=== PATIENT | female | born 1960 | race African-American/Black ===

== ENCOUNTER 2020-10-23 08:11 | Emergency (ER) | payer OTHER ==
[2020-10-23 08:21] VITALS: BP 129/77; PULSE 63; TEMP 97.7; BMI 30.9
[2020-10-23] MEDS ORDERED: METHOCARBAMOL 500 MG TABLET PO ONE (10:07)
[2020-10-23] MEDS ORDERED: KETOROLAC TROMETHAMINE 30 MG/1 ML VIAL IM ONE (10:07)
[2020-10-23] MEDS ORDERED: METHOCARBAMOL 500 MG TABLET ONE (10:24)
[2020-10-23] MEDS ORDERED: KETOROLAC TROMETHAMINE 30 MG/1 ML VIAL ONE (10:24)
== END 2020-10-23 10:40 | disposition home or self-care (01) ==
LOC: JERFT 08:11
PROC: 3E0233Z Introduction of Anti-inflammatory into Muscle, Percutaneous Approach (ICD-10-PCS; principal; 2020-10-23)
DX: S00.83XA Contusion of other part of head, initial encounter (principal); R51.9 Headache, unspecified
CPT/HCPCS: 70450-TC; 73630-TC-RT-FY; 99284-25